=== PATIENT | female | born 1950 | race Caucasian/White ===

== ENCOUNTER 2022-06-26 07:45 | Day surgery (SDC) | payer MEDICARE, BC, OTHER ==
--- NOTE | 2022-06-26 07:41 | ANESTHESIA ---
Pre-Anesthesia VS, & Labs - Diagnosis R senile combined cataract - Procedure R extraction cataract w/IOL - NPO >8 hours - Is Patient ?: No - Lab Results Lab results reviewed: Yes Home Medications and Allergies Home Medications: Ambulatory Orders Candesartan Cilexetil 1 tab PO DAILY 06/25/22 Carvedilol [Coreg] 1 tab PO DAILY 06/25/22 Simvastatin [Zocor] 40 mg PO DAILY 06/25/22 hydroCHLOROthiazide [Hydrochlorothiazide] 50 mg PO DAILY 06/25/22 metFORMIN [Glucophage] 1 tab PO BID 06/25/22 Candesartan Cilexetil 1 tab PO DAILY 06/25/22 Carvedilol [Coreg] 1 tab PO DAILY 06/25/22 Simvastatin [Zocor] 40 mg PO DAILY 06/25/22 hydroCHLOROthiazide [Hydrochlorothiazide] 50 mg PO DAILY 06/25/22 metFORMIN [Glucophage] 1 tab PO BID 06/25/22 Allergies/Adverse Reactions: Allergies Allergy/AdvReac Type Severity Reaction Status Date / Time iodine AdvReac Unknown Verified 06/25/22 12:32 Anes History & Medical History - Anesthetic History Anesthesia Complications: reports: No previous complications Family history of Anesthesia Complications: Denies Family history of Malignant Hyperthermia: Denies - Medical History Cardiovascular: reports: Hypertension, High cholesterol Pulmonary: reports: None Gastrointestinal: reports: Colon polyps Urinary: reports: None Musculoskeletal: reports: None Endocrine/Autoimmune: reports: Type 2 diabetes Skin: reports: None - Surgical History General: reports: Cholecystectomy, Appendectomy, Colonoscopy Gynecologic: reports: Hysterectomy Orthopedic: reports: Hip replacement Exam General: Alert, Oriented x3, Cooperative Dental: WNL Mouth Openin Fingerbreadth Neck Mobility: Normal Mallampati classification: II Thyromental Distance: 4-6 cm Respiratory: Lungs clear, Normal breath sounds, No respiratory distress Cardiovascular: Regular rate Neurological: Normal speech Mental/Cognitive Status: Alert/Oriented X3, Normal for patient Cognitive Status: Within normal limits Plan Anesthesia Type: MAC Consent for Procedure(s) Verified and Reviewed: Yes Code Status: Attempt Resuscitation ASA classification: 2-Mild systemic disease Is this case an emergency?: No
[~2022-06-26 07:45] MED LIST: CYCLOPENTOLATE 1% OPHTH DROPS 2 ML ONE; KETOROLAC 0.45% OPHTH DROPS ONE; PHENYLEPHRINE 2.5% OPHTH 2 ML DROPS ONE; PROPARACAINE 0.5% OPHTH DROPS 15 ML ONE
[2022-06-26] MEDS ORDERED: LACTATED RINGERS 1,000 ML IV ONE (08:08)
[2022-06-26] MEDS ORDERED: MIDAZOLAM 2 MG/2 ML VIAL ONE (09:11)
[2022-06-26] MEDS ORDERED: TIMOLOL 0.5% OPHTH DROPS OPTH ONE (09:40)
[2022-06-26] MEDS ORDERED: EPINEPHrine 1 MG/ML AMP IR ONE (09:40)
[2022-06-26] MEDS ORDERED: BRIMONIDINE 0.2% OPHTH DROPS 5 ML OPTH ONE (09:40)
[2022-06-26] MEDS ORDERED: PROPARACAINE 0.5% OPHTH DROPS 15 ML EACHEYE ONE (09:41)
[2022-06-26] MEDS ORDERED: BSS/LIDOCAINE/EPINEPHRINE 1 ML SYRINGE IO ONE (09:41)
[2022-06-26] MEDS ORDERED: TRIAMCIN/MOXIFLOX OPHTHALMIC 0.6 ML VIAL IO ONE ×3 (09:41→10:38)
[2022-06-26] MEDS ORDERED: VANCOMYCIN OPHTH (TOPICAL) 10 MG/ML SYRINGE TOP ONE (09:41)
[2022-06-26] MEDS ORDERED: LACTATED RINGERS 800 ML IV ONE (09:55)
--- NOTE | 2022-06-26 09:59 | OPERATIVE REPORT ---
Operative Report - Procedure Note Complications: Date of Surgery: 06/26/22 Preop Dx: Visually significant cataract right eye. This was the first cataract surgery. Postop Dx: Same Procedure: Phacoemulsification with posterior chamber intraocular lens implant right eye Surgeon: Dr. Eb Ibrahim Anesthesia: Monitored anesthesia care Complications: None Operative Indications: This is a 72-year-old F with progressive vision loss in the right eye due to 2+ nuclear sclerotic and 3+ cortical cataract. Best corrected visual acuity was 20/40 with glare to 20/250 vision in the right eye. Indications for surgery were: - Overall decrease in vision - Difficulty seeing words on a computer screen - Difficulty reading - Difficulty seeing words, closed captions, or game scores on TV - Difficulty seeing street signs - Difficulty driving in low light or at night - Difficulty driving at night because of headlights from other vehicles - Difficulty with glare or bright lights in any situation The patient was consented at length concerning the risks and benefits of cataract surgery after which the patient expressed a desire to proceed with surgery. Operative Procedure: The patient was taken into OR#3 and placed under monitored anesthesia care. A surgical time-out was conducted confirming correct patient, correct procedure, and correct surgical site. The patient was given topical anesthesia and then prepped and draped in the usual sterile fashion. The eye was entered at the 6 and 3 oclock positions. Intracameral Shugarcaine was injected into the anterior chamber followed by a dispersive viscoelastic. A continuous-tear curvilinear capsulorhexis was performed. The nucleus was hydrodissected and phacoemulsified. The cortex was evacuated using automated infusion and aspiration. A cohesive viscoelastic was injected into the capsular bag and a 21.0 diopter intraocular lens was inserted into the bag. Infusion and aspiration were used to evacuate the viscoelastic materials from the eye. The wounds were hydrated and the eye inflated to physiologic pressure using balanced salt solution. Approximately 0.25ml of a mixture of triamcinolone and moxifloxacin was injected trans-sclerally into the vitreous in the inferotemporal quadrant using a 30 gauge cannula. An additional 0.55ml of a mixture of triamcinolone and moxifloxacin was injected subconjunctivally in the superior quadrant for infection and inflammation prophylaxis. Wound integrity was checked with Weck-Soraida sponges. The patient was taken from the operating room in good condition and given post-op instructions.
--- NOTE | 2022-06-26 10:12 | ANESTHESIA POST OP EVALUATION ---
Anesthesia Post Eval - Post Anesthesia Eval Vitals: Last Vital Signs Temp 36 C L 06/26/22 10:06 Pulse 58 L 06/26/22 10:06 Resp 16 06/26/22 10:06 BP 141/65 H 06/26/22 10:06 Pulse Ox 99 06/26/22 10:06 O2 Flow Rate 0 06/26/22 08:12 CV Function Including HR & BP: Stable Pain Control: Satisfactory Nausea & Vomiting: Negative Mental Status: Baseline Respiratory Status: Airway Patent Hydration Status: Satisfactory Anesthesia Complications: None
[2022-06-26] MEDS ORDERED: VANCOMYCIN OPHTH (TOPICAL) 10 MG/ML SYRINGE ONE (10:29)
[2022-06-26] MEDS ORDERED: timoloL maleate 0.5% OPHTH DROPS (10ML) ONE (10:29)
[2022-06-26] MEDS ORDERED: EPINEPHrine 1 MG/ML AMP ONE (10:29)
[2022-06-26] MEDS ORDERED: BRIMONIDINE 0.2% OPHTH DROPS 5 ML ONE (10:29)
[2022-06-26] MEDS ORDERED: BSS/LIDOCAINE/EPINEPHRINE 1 ML VIAL ONE (10:29)
[2022-06-26 10:32] VITALS: BP 138/68
== END 2022-06-26 07:46 | disposition home or self-care (01) ==
LOC: SDS 07:45
PROVIDERS: ATTEND Ophthalmology
DX: E11.36 Type 2 diabetes mellitus with diabetic cataract (principal); H25.811 Combined forms of age-related cataract, right eye; Z79.84 Long term (current) use of oral hypoglycemic drugs
CPT/HCPCS: 66984; A9270; J3490; J7120; V2632; V2788

== ENCOUNTER 2022-11-27 06:23 | Day surgery (SDC) | payer MEDICARE, BC, OTHER ==
[2022-11-27] MEDS ORDERED: LACTATED RINGERS 1,000 ML IV ONE (06:28)
--- NOTE | 2022-11-27 07:03 | ANESTHESIA ---
Pre-Anesthesia VS, & Labs - Diagnosis L senile combined cataract - Procedure extraction L cataract w IOL Vital Signs: Temp Pulse Resp BP Pulse Ox O2 Flow Rate 36 C L 65 16 122/63 95 11/27/22 06:47 11/27/22 06:47 11/27/22 06:47 11/27/22 06:47 11/27/22 06:47 Height: 5 ft 1 in Weight (kg): 101 kg Body Mass Index: 42.0 BMI Classification: Morbidly Obese - NPO >8 hours - Is Patient ?: No - Lab Results Current Lab Results: Laboratory Tests 11/27/22 06:54: POC Whole Bld Glucose 123 H Lab results reviewed: Yes Home Medications and Allergies Candesartan Cilexetil 1 tab PO DAILY 06/25/22 Carvedilol [Coreg] 1 tab PO DAILY 06/25/22 Simvastatin [Zocor] 40 mg PO DAILY 06/25/22 hydroCHLOROthiazide [Hydrochlorothiazide] 50 mg PO DAILY 06/25/22 metFORMIN [Glucophage] 1 tab PO BID 06/25/22 Allergies/Adverse Reactions: Allergies Allergy/AdvReac Type Severity Reaction Status Date / Time iodine AdvReac Unknown Verified 06/25/22 12:32 Anes History & Medical History - Anesthetic History Anesthesia Complications: reports: No previous complications Family history of Anesthesia Complications: Denies Family history of Malignant Hyperthermia: Denies - Medical History Cardiovascular: reports: Hypertension Pulmonary: reports: None Gastrointestinal: reports: None Urinary: reports: None Musculoskeletal: reports: None Endocrine/Autoimmune: reports: Type 2 diabetes Skin: reports: None - Surgical History General: reports: Cholecystectomy, Appendectomy, Colonoscopy Eyes Ears Nose Throat (EENT): reports: Cataracts Gynecologic: reports: Hysterectomy Orthopedic: reports: Hip replacement Exam General: Alert, Oriented x3, Cooperative Dental: WNL Mouth Openin Fingerbreadth Neck Mobility: Normal Mallampati classification: II Thyromental Distance: 4-6 cm Respiratory: Lungs clear, Normal breath sounds, No respiratory distress Cardiovascular: Regular rate Neurological: Normal speech Mental/Cognitive Status: Alert/Oriented X3, Normal for patient Cognitive Status: Within normal limits Plan Anesthesia Type: MAC Consent for Procedure(s) Verified and Reviewed: Yes Code Status: Attempt Resuscitation ASA classification: 2-Mild systemic disease Is this case an emergency?: No
[2022-11-27] MEDS ORDERED: TIMOLOL 0.5% OPHTH DROPS ONE ×2 (07:04→08:02)
[2022-11-27] MEDS ORDERED: EPINEPHrine 1 MG/ML AMP ONE (07:04)
[2022-11-27] MEDS ORDERED: BRIMONIDINE 0.2% OPHTH DROPS 5 ML ONE (07:04)
[2022-11-27] MEDS ORDERED: TRIAMCIN/MOXIFLOX OPHTHALMIC 0.6 ML VIAL IO ONE ×2 (07:04→08:08)
[2022-11-27] MEDS ORDERED: BSS/LIDOCAINE/EPINEPHRINE 1 ML VIAL ONE ×2 (07:05→08:29)
[2022-11-27] MEDS ORDERED: VANCOMYCIN OPHTH (TOPICAL) 10 MG/ML SYRINGE ONE (07:05)
[2022-11-27] MEDS ORDERED: MIDAZOLAM 2 MG/2 ML VIAL ONE (07:20)
[2022-11-27] MEDS ORDERED: ACETYLCHOLINE 20 MG/2 ML KIT IO ONE ×3 (07:27→08:08)
[2022-11-27] MEDS ORDERED: BRIMONIDINE 0.2% OPHTH DROPS 5 ML OPTH ONE (08:06)
[2022-11-27] MEDS ORDERED: TIMOLOL 0.5% OPHTH DROPS OPTH ONE (08:07)
[2022-11-27] MEDS ORDERED: BSS/LIDOCAINE/EPINEPHRINE 1 ML SYRINGE IO ONE (08:07)
[2022-11-27] MEDS ORDERED: EPINEPHrine 1 MG/ML AMP IR ONE (08:07)
[2022-11-27] MEDS ORDERED: PROPARACAINE 0.5% OPHTH DROPS 15 ML EACHEYE ONE (08:08)
[2022-11-27] MEDS ORDERED: VANCOMYCIN OPHTH (TOPICAL) 10 MG/ML SYRINGE TOP ONE (08:08)
[2022-11-27] MEDS ORDERED: LACTATED RINGERS 250 ML IV ONE (08:30)
--- NOTE | 2022-11-27 08:42 | OPERATIVE REPORT ---
Operative Report - Other Other Information/Narrative: Date of Surgery: 11/27/22 Preop Dx: Visually significant cataract left eye. Cataract surgery was performed in the right eye on . Postop Dx: Same Procedure: Phacoemulsification with posterior chamber intraocular lens implant left eye Surgeon: Dr. Eb Ibrahim5 Anesthesia: Monitored anesthesia care Complications: Unplanned vitrectomy due to posterior capsule rupture. The original plan was to insert a multifocal IOL but due to the rupture a sulcus- fixated 3-piece monofocal IOL was use instead. Operative Indications: This is a 72-year-old F with progressive vision loss in the left eye due to 2+ nuclear sclerotic and 3-4+ cortical cataract. Best cor rected visual acuity was 20/20 with glare to 20/40 vision in the left eye. Indications for surgery were: - Overall decrease in vision - Difficulty seeing words on a computer screen - Difficulty reading - Difficulty seeing words, closed captions, or game scores on TV - Difficulty seeing street signs - Difficulty driving in low light or at night - Difficulty driving at night because of headlights from other vehicles - Difficulty with glare or bright lights in any situation The patient was consented at length concerning the risks and benefits of cataract surgery after which the patient expressed a desire to proceed with surgery. Operative Procedure: The patient was taken into OR#3 and placed under monitored anesthesia care. A surgical time-out was conducted confirming correct patient, correct procedure, and correct surgical site. The patient was given topical anesthesia and then prepped and draped in the usual sterile fashion. The eye was entered at the 6 and 3 oclock positions. Intracameral Shugarcaine was injected into the anterior chamber followed by a dispersive viscoelastic. A continuous-tear curvilinear capsulorhexis was performed. The nucleus was hydrodissected and phacoemulsified. However, about [address] nucleus phacoemulsification a round hole was noted in the middle of the posterior capsule. No vitreous was evident. It seemed that the capsule would support the multifocal IOL so the caspule was inflated and the pre-planned IOL injected into the bag. During automated infusion and aspiration however, the IOL became unstable, it was obvious that the rupture had enlarged, and that vitreous was now present in the anterior chamber. The IOL was therefore pulled out of the eye through the phaco wound. A cohesive viscoelastic was injected into the sulcus space and a 19.0 diopter 3-piece intraocular lens was inserted into the sulcus. Infusion and aspiration were used to evacuate the viscoelastic materials from the eye but the IOL wanted to move forward likely due to vitreous pressure. Two injections of Miochol brought the pupil down over the edges of the optic to hold it back. Several plates of vitreous were removed with dry anterior vitrectomy and cyclodialysis sweeps. The wounds were hydrated and the eye inflated to physiologic pressure using balanced salt solution. Approximately 0.25ml of a mixture of triamcinolone and moxifloxacin was injected trans-sclerally into the vitreous in the inferotemporal quadrant using a 30 gauge cannula. No triamcinolone was seen to stream into the anterior chamber. An additional 0.25ml of a mixture of triamcinolone and moxifloxacin was injected subconjunctivally in the superior quadrant for infection and inflammation prophylaxis. Wound integrity was checked with Weck-Soraida sponges and no vitreous was found at the wounds. The patient was taken from the operating room in good condition, informed of the complication, and given post-op instructions.
--- NOTE | 2022-11-27 08:59 | ANESTHESIA POST OP EVALUATION ---
Anesthesia Post Eval - Post Anesthesia Eval Vitals: Last Vital Signs Temp 36.8 C 11/27/22 08:45 Pulse 65 11/27/22 08:45 Resp 22 11/27/22 08:45 BP 126/56 L 11/27/22 08:45 Pulse Ox 98 11/27/22 08:45 O2 Flow Rate CV Function Including HR & BP: Stable Pain Control: Satisfactory Nausea & Vomiting: Negative Mental Status: Baseline Respiratory Status: Airway Patent Hydration Status: Satisfactory Anesthesia Complications: None
[2022-11-27 10:16] VITALS: BP 122/54
== END 2022-11-27 06:24 | disposition home or self-care (01) ==
LOC: SDS 06:23
PROVIDERS: ATTEND Ophthalmology
DX: E11.36 Type 2 diabetes mellitus with diabetic cataract (principal); H25.812 Combined forms of age-related cataract, left eye; Z79.84 Long term (current) use of oral hypoglycemic drugs; E66.01 Morbid (severe) obesity due to excess calories; Z68.41 Body mass index [BMI] 40.0-44.9, adult; Z98.41 Cataract extraction status, right eye
CPT/HCPCS: 66984; A9270; J3490; J7120; V2632